=== PATIENT | male | born 1940 | race Caucasian/White ===

== ENCOUNTER 2020-04-28 19:07 | Inpatient (IN) | payer MEDICARE, MEDICAID, SELFPAY ==
[2020-04-28] VITALS (7 sets, daily range): BP systolic 62–113; BP diastolic 48–70; PULSE 99–109; RESP 18–26; TEMP 37.1–39.3; O2SAT 95–99; BMI 21.7
--- NOTE | 2020-04-28 19:11 | XRR_ITS ---
PROCEDURE INFORMATION: Exam: XR Chest, 1 View Exam date and time: 04/28/2020 7:49 PM Age: 79 years old Clinical indication: Fever TECHNIQUE: Imaging protocol: XR of the chest Views: Frontal portable upright view of the chest. COMPARISON: CR Chest 1 [place] [id number] 03/15/2018 5:14 AM FINDINGS: Lungs: Improved right basilar pulmonary subsegmental atelectasis medially, stable laterally. The pulmonary vasculature is normal. Pleural space: No pleural effusion. No pneumothorax. Heart/Mediastinum: The heart is normal in size and contour. Mediastinum: Stable. Vasculature: Mild tortuosity of the upper descending thoracic aorta. Bones/joints: Stable. XR/XR chest 1V portable [id number] IMPRESSION: Improved right basilar pulmonary subsegmental atelectasis.
--- NOTE | 2020-04-28 19:12 | ECG_ITS ---
[facility] Test Date: 2020-04-28 Pat Name: Geoffrey Villa Department: Room: Gender: Male Director Of Strategic Marketing: : 1940 Requested By: Sonu Gonzalez Order Number: [id number] Argelia MD: Jacob Rodríguez M.D. Measurements Intervals [place] Rate: 154 P: [place]: -1 QRS: 42 QRSD: 91 T: 62 QT: 269 QTc: 431 Interpretive Statements ATRIAL FIBRILLATION WITH RAPID VENTRICULAR RESPONSE MODERATE ST DEPRESSION [0.05+ mV ST DEPRESSION] CRITICAL TEST RESULT Compared to ECG 03/15/2018 05:12:27 ST (T wave) deviation now present Sinus rhythm no longer present Electronically Signed On 04-29-2020 0:23:22 CDT by Jacob Rodríguez M.D. [id number]
--- NOTE | 2020-04-28 19:15 | W.ED.FEVER ---
HPI - Fever General: Chief Complaint: Fever Stated Complaint: LOW O2 STATS Time Seen by Provider: 04/28/20 19:11 Source: EMS Mode of arrival: EMS Limitations: altered mental status History of Present Illness: HPI Narrative: 79-year-old male has a history of severe dementia that is here from prison. Patient there had a fever along with decreased O2 sats. Patient here is 93% on 4 L which she is on at all times. Patient's baseline is altered and he is nonverbal. No history is available from here. He is quite febrile and has a temperature 102.8. He has histories of pneumonia and urinary tract infections. elicited complaint: fever Review of Systems General: Reports: ROS unobtainable due to mental status Const: Reports: fever(s) Physical Exam Const: COMMON NORMALS: negative for patient oriented x3 EXAM LIMITATIONS: altered mental status GENERAL APPEARANCE: in distress, ill appearing and frail appearing HENMT: COMMON NORMALS: normocephalic and atraumatic HEAD & SCALP: normocephalic and atraumatic Eye: COMMON NORMALS: Equal, round and reactive pupils present and EOMs intact bilaterally PUPIL: Yes Equal, round and reactive pupils present Neck/C-Spine: COMMON NORMALS: full ROM and supple Chest: COMMONS NORMALS: normal inspection of the chest and normal palpation of entire chest wall Resp: COMMON NORMALS: normal respiratory effort, No retractions, No use of accessory muscles and clear to auscultation bilaterally AUSCULTATION: clear to auscultation bilaterally Cardio: COMMON NORMALS: regular rhythm and No murmurs present (Cardio) RATE: tachycardic RHYTHM: regular rhythm GI: COMMON NORMALS: Normal to inspection, nondistended, normoactive bowel sounds present, Soft to palpation, non-tender and no masses PALPATION: Yes Soft to palpation Extremity: COMMON NORMALS: normal to inspection and full ROM Neuro: COMMON NORMALS: negative for patient oriented x3 Psych: COMMON NORMALS: negative for mental status grossly normal Skin: COMMON NORMALS: no rashes or lesions noted and no wounds GENERAL SKIN EXAM: no rashes or lesions noted Course Vital Signs: Vital signs: Vital Signs Temperature 102.8 F H 04/28/20 19:11 Pulse Rate 105 H 04/28/20 21:14 Respiratory Rate 22 H 04/28/20 21:14 Blood Pressure 62/48 04/28/20 21:14 Pulse Oximetry 99 04/28/20 21:14 MDM - Fever MDM Narrative: Medical decision making narrative: 79-year-old presents here with fever along with hypotension. Patient has septic shock from cystitis. I spoke with family and they do not want any aggressive treatments. Patient is DNR and DNI. Will start patient on Levophed they do not want a central line at this time. Will admit the ICU and I spoke to hospitalist. Lab Data: Labs: Lab Results 04/28/20 04/28/20 04/28/20 Range/Units 19:26 19:26 19:26 WBC 3.4 L (4.0-10.0) 10^3/ uL RBC 4.53 (4.1-5.3) 10^6/u L Hgb 13.3 (11.7-16.6) g/dL Hct 42.4 (42.0-52.0) % MCV 93.6 (80-94) fL MCH 29.4 (28.0-34.0) pg MCHC 31.4 (30.0-36.0) g/dL RDW 13.2 (12.1-15.1) % Plt Count 198 (130-400) 10^3/c mm MPV 10.0 (7.4-10.4) fL Neut % (Auto) 88.6 % Lymph % (Auto) 8.1 % [place] % (Auto) 1.5 % Eos % (Auto) 0.3 % Baso % (Auto) 0.9 % Neut # (Auto) 3.05 (1.8-7.7) 10^3/u L Lymph # (Auto) 0.3 L (0.8-4.8) 10^3/u L [place] # (Auto) 0.1 L (0.2-0.9) 10^3/u L Eos # (Auto) 0.0 (0.0-0.8) 10^3/u L Baso # (Auto) 0.0 (0.0-0.1) 10^3/u L Nucleated RBC % (a uto) 0 % Nucleated RBCs # 0.0 /100WBC PT 14.70 H (10.5-13.3) SECO NDS INR 1.11 (0.8-1.2) Sodium 142 (136-145) mmol/L Potassium 4.0 (3.5-5.1) mmol/L Chloride 104 (98-107) mmol/L Carbon Dioxide 23 (22-29) mmol/L Anion Gap 19.0 (5-19) BUN 51 H (8-23) mg/dL Creatinine 2.3 H (0.7-1.2) mg/dL GFR Calculation Not Reportable Glucose 103 (65-115) mg/dL Calculated Osmolal ity 293 (285-295) mOsm/k g Lactate (0.5-2.2) mmol/L Calcium 9.3 (8.5-10.5) mg/dL Total Bilirubin 1.2 (0.15-1.2) mg/dL AST 75 H (0-40) U/L ALT 38 (0-41) U/L Alkaline Phosphata se 152 H (40-130) IU/L NT-Pro-B Natriuret Pep 1918 H (0-450) pg/mL Total Protein 6.6 (6.6-8.7) g/dL Albumin 3.3 L (3.5-5.2) g/dL Globulin 3.3 (1.3-4.6) g/dL Urine Color (Yellow) Urine Appearance (CLEAR) Urine pH (5-7) Ur Specific Gravit y (1.005-1.030) Urine Protein (Negative) Urine Glucose (UA) (Normal) Urine Ketones (Negative) Urine Blood (Negative) Urine Nitrate (Negative) Urine Bilirubin (NEGATIVE) Prot Sulfosalicyli c Acd (Negative) Urine Urobilinogen (Negative) mg/dL Ur Leukocyte Amy ase (Negative) Urine RBC (0-2) /hpf Urine WBC (0-5) /hpf Ur Squamous Epith Cells (0-5) Amorphous Sediment Urine Bacteria (NONE) 04/28/20 04/28/20 Range/Units 19:26 21:04 WBC (4.0-10.0) 10^3/ uL RBC (4.1-5.3) 10^6/u L Hgb (11.7-16.6) g/dL Hct (42.0-52.0) % MCV (80-94) fL MCH (28.0-34.0) pg MCHC (30.0-36.0) g/dL RDW (12.1-15.1) % Plt Count (130-400) 10^3/c mm MPV (7.4-10.4) fL Neut % (Auto) % Lymph % (Auto) % [place] % (Auto) % Eos % (Auto) % Baso % (Auto) % Neut # (Auto) (1.8-7.7) 10^3/u L Lymph # (Auto) (0.8-4.8) 10^3/u L [place] # (Auto) (0.2-0.9) 10^3/u L Eos # (Auto) (0.0-0.8) 10^3/u L Baso # (Auto) (0.0-0.1) 10^3/u L Nucleated RBC % (a uto) % Nucleated RBCs # /100WBC PT (10.5-13.3) SECO NDS INR (0.8-1.2) Sodium (136-145) mmol/L Potassium (3.5-5.1) mmol/L Chloride (98-107) mmol/L Carbon Dioxide (22-29) mmol/L Anion Gap (5-19) BUN (8-23) mg/dL Creatinine (0.7-1.2) mg/dL GFR Calculation Glucose (65-115) mg/dL Calculated Osmolal ity (285-295) mOsm/k g Lactate 0.2 L (0.5-2.2) mmol/L Calcium (8.5-10.5) mg/dL Total Bilirubin (0.15-1.2) mg/dL AST (0-40) U/L ALT (0-41) U/L Alkaline Phosphata se (40-130) IU/L NT-Pro-B Natriuret Pep (0-450) pg/mL Total Protein (6.6-8.7) g/dL Albumin (3.5-5.2) g/dL Globulin (1.3-4.6) g/dL Urine Color Yellow (Yellow) Urine Appearance Turbid (CLEAR) Urine pH 8 H (5-7) Ur Specific Gravit y 1.010 (1.005-1.030) Urine Protein 3+ H (Negative) Urine Glucose (UA) Norm (Normal) Urine Ketones 1+ H (Negative) Urine Blood 3+ H (Negative) Urine Nitrate Negative (Negative) Urine Bilirubin Neg (NEGATIVE) Prot Sulfosalicyli c Acd Positive (Negative) Urine Urobilinogen Norm (Negative) mg/dL Ur Leukocyte Amy ase 2+ H (Negative) Urine RBC >100 H (0-2) /hpf Urine WBC Too numerous to c nt H (0-5) /hpf Ur Squamous Epith Cells 0-4 H (0-5) Amorphous Sediment 4+ Urine Bacteria 4+ H (NONE) EKG Data^: EKG 1: Attestation: I personally reviewed and interpreted this EKG as follows: EKG interpretation date: 04/28/20 EKG interpretation time: 19:39 Interpretation: afib with rvr hr [address] or t wave abnormalities qrs 91 qtc 356 Critical Care Time Critical Care Time: Critical Care Time: Yes Total Critical Care Time: 35 Attestation: This case had a high probability of a clinically significant, sudden, or life threatening deterioration of this patient's condition which required my full and direct attention, intervention and personal management. Discharge Plan Discharge Patient Disposition: Admitted As Inpatient Clinical Impression: Septic shock Acute cystitis Qualifiers: Hematuria presence: without hematuria Qualified Code(s): N30.00 - Acute cystitis without hematuria Condition: Stable Referrals: Mathieu Overton DO [Primary Care Provider] - Coding Level of Care Code ED Lithographic Proofer Apprentice for Chg Fwd Exam Comprehensive
[2020-04-28 20:07] LABS: Basophils % 0.9 %; Eosinophils % 0.3 %; Hematocrit 42.4 % (42.0-52.0); Hemoglobin 13.3 g/dL (11.7-16.6); Lymphocytes # 0.3 10^3/uL (0.8-4.8); Lymphocytes % 8.1 %; Mean Corpuscular HGB Conc 31.4 g/dL (30.0-36.0); Mean Corpuscular Hemoglobin 29.4 pg (28.0-34.0); Mean Corpuscular Volume 93.6 fL (80-94); Monocytes # 0.1 10^3/uL (0.2-0.9); Monocytes % 1.5 %; Neutrophils # 3.05 10^3/uL (1.8-7.7); Neutrophils % 88.6 %; Nucleated Red Blood Cells % 0 %; Platelet Count 198 10^3/cmm (130-400); Red Blood Count 4.53 10^6/uL (4.1-5.3); Red Cell Distribution Width 13.2 % (12.1-15.1); White Blood Count 3.4 10^3/uL (4.0-10.0)
[2020-04-28 20:09] LABS: INR 1.11 (0.8-1.2)
[2020-04-28 20:13] LABS: Lactate (Lactic Acid level) 0.2 mmol/L (0.5-2.2)
[2020-04-28 20:59] LABS: Alanine Aminotransferase 38 U/L (0-41); Albumin Level 3.3 g/dL (3.5-5.2); Alkaline Phosphatase 152 IU/L (40-130); Aspartate Amino Transferase 75 U/L (0-40); Blood Urea Nitrogen 51 mg/dL (8-23); Calcium 9.3 mg/dL (8.5-10.5); Carbon Dioxide 23 mmol/L (22-29); Chloride 104 mmol/L (98-107); Globulin 3.3 g/dL (1.3-4.6); Glucose 103 mg/dL (65-115); NT Pro B Type Natriuretic Pept 1918 pg/mL (0-450); Osmolality Calculated 293 mOsm/kg (285-295); Sodium 142 mmol/L (136-145); Total Bilirubin 1.2 mg/dL (0.15-1.2); Total Protein 6.6 g/dL (6.6-8.7)
[2020-04-28 21:02] LABS: Slide Review Slide Review Perform
[2020-04-28] MEDS: acetaminophen 650 mg Supp PR (21:19)
[2020-04-28] MEDS: sodium chloride 0.9% 1,000 ML 999 ML IV (21:19)
[2020-04-28] MEDS: sodium chloride 0.9% 500 ML 999 ML IV (21:30)
--- NOTE | 2020-04-28 21:41 | PC.NURSE ---
hypotension verified by manual bp on L side. Dr notified. vo for second line
[2020-04-28 21:44] LABS: Urine Appearance Turbid (CLEAR); Urine Color Yellow (Yellow); pH Urine 8 (5-7)
[2020-04-28 21:45] LABS: Add Urine Microscopic? YES; Bilirubin Urine Neg (NEGATIVE); Blood Urine 3+ (Negative); Glucose Urine UA Norm (Normal); Ketones Urine 1+ (Negative); Leukocyte Esterase Urine 2+ (Negative); Nitrate Urine Negative (Negative); Protein Urine 3+ (Negative); Sulfosalicylic Acid Urine Positive (Negative); Urobilinogen Urine Norm (Negative)
[2020-04-28 21:56] LABS: RBC Urine >100 /hpf (0-2); Squamous Epithelial Cell Urine 0-4 (0-5); WBC Urine TOO NUMEROUS TO CNT /hpf (0-5)
[2020-04-28 21:57] LABS: Add Urine Culture? No; Amorphous Sediment Urine 4+; Bacteria Urine 4+
[2020-04-28] MEDS: vancomycin 1,000 MG in sodium chloride 0.9% 250 ML 250 MG IV (22:02)
--- NOTE | 2020-04-28 22:49 | CTR_ITS ---
PROCEDURE INFORMATION: Exam: CT Abdomen And Pelvis Without Contrast Exam date and time: 04/28/2020 11:07 PM Age: 79 years old Clinical indication: Condition or disease; Other: UTI, sepsis; Additional info: UTI sepsis TECHNIQUE: Imaging protocol: Computed tomography of the abdomen and pelvis without contrast. Radiation optimization: All CT scans at this facility use at least one of these dose optimization techniques: automated exposure control; mA and/or kV adjustment per patient size (includes targeted exams where dose is matched to clinical indication); or iterative reconstruction. COMPARISON: CT abdomen pelvis w con* [id number] 05/01/2018 2:40 PM RADIATION DOSE METRICS: Total DLP (mGy-cm): 1068.14 FINDINGS: Lungs: Centrilobular emphysema in the lung bases. Liver: Normal. No mass. Gallbladder and bile ducts: The gallbladder is surgically absent. Pancreas: Normal. No ductal dilation. Spleen: Normal. No splenomegaly. Adrenals: Normal. No mass. Kidneys and ureters: Moderately severe right obstructive uropathy is due to a 9 x 6 x 9 mm calculus in the midportion of the ureter. There are multiple additional calculi within the urinary bladder measuring up to 17 mm. The stones are new since 2018. Multiple additional nonobstructing stones in both kidneys, larger and more numerous on the right. Several bilateral renal cortical cysts measure up to 4 cm on the left. There is a chronic fatty and soft tissue mass arising from the right upper renal pole and measuring 3.4 x 2.8 cm. 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 Stomach and bowel: The rectum is distended with stool up to 6.6 cm. Appendix: No evidence of appendicitis. Intraperitoneal space: Unremarkable. No free air. No significant fluid collection. Vasculature: A nonruptured infrarenal abdominal aortic aneurysm measures up to 3.8 cm. There is an additional aneurysm of the proximal right common iliac artery measuring 3.7 cm. Ectasias of the left common femoral artery. Lymph nodes: Unremarkable. No enlarged lymph nodes. Bladder: The urinary bladder is decompressed by a Salgado catheter. Reproductive: Prostate contains numerous calcifications. Bones/joints: Chronic right hip internal fixation. Soft tissues: Small left inguinal hernia consist of fatty tissue only. CT/CT abdomen pelvis wo con [id number] IMPRESSION: 1. Right obstructive uropathy due to a 9 mm mid ureteral calculus. 2. Multiple bilateral intrarenal stones. Also multiple stones in the urinary bladder. 3. Nonruptured infrarenal aortic aneurysm, 3.8 cm. 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 Chronic right upper renal pole angiomyolipoma. 5. Other chronic and incidental findings as described. Radiation Dose CTDIVOL = (mGy): DLP = 1068.14 (mGy-cm)
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
[2020-04-28] MEDS: aztreonam 2,000 MG in sodium chloride 0.9% (plus) 100 ML 200 MG IV (23:52)
[2020-04-28] MEDS: dextrose 5%-sod chloride 0.45% 1,000 ML 100 ML IV (23:52)
[2020-04-29] VITALS (143 sets, daily range): BP systolic 67–185; BP diastolic 41–95; PULSE 75–163; RESP 18–31; TEMP 36.8–38.7; O2SAT 87–98
--- NOTE | 2020-04-29 01:05 | PC.PHAR ---
Pharmacokinetic dosing service Date: 04/29/20 Time: 99 Objective: Patient: Geoffrey Villa Floor: ICU-7 Age: 79 yo Serum creatinine: 2.3 mg/dL Height: 72.0 Inches Weight (kg): 72.575 Diagnosis: Relevant medical/social history: Cultures and sensitivities: Other labs: Assessment: IBW (kg): 77.60 Dosing wt(kg): 72.575 Estimated Creatinine clearance (ml/min): 25.9 CRCL method: Cockcroft and Gault using ibw(default). Drug selected: Vancomycin Loading dose (mg): 0 Vd (liters): 65.3 (factor used: 0.9 L/kg) [place]ou (hr-1): 0.026 Half life (hrs): 26.66 Recommended dose: 1000 mg Interval: 24 hrs Infusion time (hrs): 1.5 Predicted peak (mcg/mL): 32.4 Predicted trough (mcg/mL): 18.05 Total body weight is being used for vancomycin dosing. Renal function is stable [ ] /unstable [ ] Recommendations: Give Vancomycin 1000 mg q 24 hrs with an expected Cpeak of 32.4 mcg/ml and an expected Ctrough of 18.05 mcg/ml Renal dosing of other antibiotics (review renal dosing of other medications and list guidelines here): Thank you for the consult, will continue to follow. Signature: Nicole Archibald [facility]
[2020-04-29 04:07] LABS: Basophils # 0.1 10^3/uL (0.0-0.1); Basophils % 0.5 %; Hematocrit 37.6 % (42.0-52.0); Hemoglobin 11.2 g/dL (11.7-16.6); Lymphocytes # 0.6 10^3/uL (0.8-4.8); Lymphocytes % 2.2 %; Mean Corpuscular HGB Conc 29.8 g/dL (30.0-36.0); Mean Corpuscular Hemoglobin 29.6 pg (28.0-34.0); Mean Corpuscular Volume 99.5 fL (80-94); Mean Platelet Volume 10.3 fL (7.4-10.4); Monocytes # 1.1 10^3/uL (0.2-0.9); Neutrophils # 24.02 10^3/uL (1.8-7.7); Neutrophils % 92.2 %; Nucleated Red Blood Cells % 0 %; Platelet Count 198 10^3/cmm (130-400); Red Blood Count 3.78 10^6/uL (4.1-5.3); Red Cell Distribution Width 13.4 % (12.1-15.1)
[2020-04-29 04:21] LABS: Anion Gap 15.2 (5-19); Blood Urea Nitrogen 51 mg/dL (8-23); Calcium 7.6 mg/dL (8.5-10.5); Carbon Dioxide 19 mmol/L (22-29); Chloride 109 mmol/L (98-107); Glucose 159 mg/dL (65-115); Osmolality Calculated 292 mOsm/kg (285-295); Potassium 3.2 mmol/L (3.5-5.1); Sodium 140 mmol/L (136-145)
[2020-04-29 05:12] LABS: Slide Review Slide Review Perform
[2020-04-29] MEDS: ciprofloxacin 400 MG/200 ML PREMIX 200 MG IV (08:15)
[2020-04-29] MEDS: lactated ringers 1,000 ML 150 ML IV ×2 (08:16→17:13)
[2020-04-29] MEDS: pantoprazole DR 40 mg Tablet 20 MG PO (08:20)
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
[2020-04-29] MEDS: aspirin 81 mg EC Tablet PO (08:47)
[2020-04-29] MEDS: potassium chloride premix 40 MEQ/100 ML PREMIX 25 MEQ IV (09:36)
[2020-04-29] MEDS: aztreonam 1,000 MG in sodium chloride 0.9% (plus) 50 ML 100 MG IV ×2 (09:39→22:27)
[2020-04-29 09:46] LABS: Creatine Phosphokinase 42 U/L (39-308); Magnesium 1.6 mg/dL (1.7-2.3); Phosphorus 3.4 mg/dL (2.5-4.5)
[2020-04-29 09:47] LABS: Troponin T (5th) Once 47 ng/L (0-15)
--- NOTE | 2020-04-29 10:15 | PC.NURSE ---
Addendum entered by Kayla Avila RN 04/29/20 14:54: extavastion Original Note: Left arm Levophed infusing at 5mcg/hr, infiltrated. Pt has about a 4 inch by 1.5 inch pink hardened area on arm, following vein with catheter. Dr Jackson notified. Orders to follow pharmacy recommendations. Verna Becerra notified, to withdraw as much back out of catheter as can be, discontinued catheter, warm dry compress and elevated, Then terbutaline injection.
[2020-04-29] MEDS: terbutaline 1 mg/mL INJ 0.25 MG SUBCUT (10:30)
--- NOTE | 2020-04-29 10:40 | PC.NURSE ---
REmoved left forearm catheter after attempting to draw back any infused levophed and/or potassium. Maybe 0.25 ml drawn. Warm, dry compress applied. Arm elevated upon 2 pillows. Maiocl Finn brought terbutaline, we both looked at site , which is softer now. Decision to only injected 3 ml subq made, and done. Will continue to monitor.
[2020-04-29] MEDS: terbutaline 1 mg/mL INJ XX (10:46)
--- NOTE | 2020-04-29 14:11 | PC.NURSE ---
Third unit of PRBCs completed. Pt tolerated well.
[2020-04-29] MEDS: ALPRAZolam 0.25 mg Tablet PO (15:52)
[2020-04-29] MEDS: sodium chloride 0.9% 1,000 ML 750 ML IV (18:08)
--- NOTE | 2020-04-29 19:26 | PC.NURSE ---
Fever Pt tachycardic rate 140's-160's , sinus tach. Temp checked and 101.[address] Gomez for tylenol orders. Orders received for tylenol 650mg po q4 prn if can take oral, AR if unable to take oral.
--- NOTE | 2020-04-29 19:41 | PC.NURSE ---
Shift summary: Pt yells out rarely. He askes for Pepsis, he has been NPO today. Levophed extavastion his left forearm, the area is now soft and very bruised in appearance. He denies pain at the site. Levophed stopped by 1400. Pt's VSS then at 1700 his heart rate climbed to 140's, B/P dropped briefly, then heart rate came back down. at 1800 heart rate WNL but SBP 69, Dr Jackson notified, IV fluid bolus started. Pressures improving but pt is febrile this evening. Report given to YULIYA Angeles then his heart rate jumped back to 140. Bridgette, notified Dr Gomez of that and even higher temp. Orders received.
[2020-04-29] MEDS: acetaminophen 325 mg Tablet 650 MG PO (19:45)
--- NOTE | 2020-04-29 19:51 | PC.NURSE ---
Tachycardia/hypotension 1000ml bolus from dayshift completed. Levophed had to be resumed for bp 63/43. HR 160's sinus . Dr. Gomez notified at this time of sustained tachycardia. Orders received to switch levophed drip to neosynephrine due to tachycardia and another admin of 500ml NS bolus.
[2020-04-29] MEDS: sodium chloride 0.9% 500 ML 999 ML IV (20:00)
[2020-04-29] MEDS: phenylephrine inj 25 MG in sodium chloride 0.9% 250 ML 24.2 MG IV (20:05)
--- NOTE | 2020-04-29 20:30 | PC.NURSE ---
Family Updated On patient decline of condition and AND status. Approved for visitor (sister) Rosio Little to come visit.
[2020-04-29] MEDS: vancomycin 1,000 MG in sodium chloride 0.9% 250 ML 250 MG IV (23:00)
[2020-04-30] VITALS (66 sets, daily range): BP systolic 75–151; BP diastolic 52–94; PULSE 68–137; RESP 14–24; TEMP 36.5–37.8; O2SAT 90–99
[2020-04-30] MEDS: acetaminophen 650 mg Supp PR (00:12)
--- NOTE | 2020-04-30 00:20 | PC.NURSE ---
Physician Notification Dr. Gomez notified of continued persistent tachycardia for past several hrs. Sinus tach at rate 135. Afebrile at this time. BP 101/81 with neosynephrine at 100mcg. Orders received for additional 1000ml bolus.
[2020-04-30] MEDS: sodium chloride 0.9% 1,000 ML 999 ML IV (00:26)
[2020-04-30] MEDS: phenylephrine inj 25 MG in sodium chloride 0.9% 250 ML 60.6 MG IV (01:05)
[2020-04-30] MEDS: lactated ringers 1,000 ML 150 ML IV ×3 (01:46→22:16)
[2020-04-30] MEDS: ciprofloxacin 400 MG/200 ML PREMIX 200 MG IV (01:47)
[2020-04-30 04:29] LABS: Basophils # 0.2 10^3/uL (0.0-0.1); Basophils % 0.5 %; Eosinophils # 0.4 10^3/uL (0.0-0.8); Eosinophils % 1.2 %; Hematocrit 37.4 % (42.0-52.0); Lymphocytes # 0.9 10^3/uL (0.8-4.8); Lymphocytes % 2.7 %; Mean Corpuscular HGB Conc 29.4 g/dL (30.0-36.0); Mean Corpuscular Hemoglobin 29.1 pg (28.0-34.0); Mean Corpuscular Volume 98.9 fL (80-94); Mean Platelet Volume 10.6 fL (7.4-10.4); Monocytes # 1.3 10^3/uL (0.2-0.9); Monocytes % 3.7 %; Neutrophils # 30.84 10^3/uL (1.8-7.7); Neutrophils % 89.1 %; Nucleated Red Blood Cells % 0 %; Platelet Count 191 10^3/cmm (130-400); Red Blood Count 3.78 10^6/uL (4.1-5.3); Red Cell Distribution Width 13.9 % (12.1-15.1)
[2020-04-30 04:50] LABS: Alanine Aminotransferase 55 U/L (0-41); Albumin Level 2.1 g/dL (3.5-5.2); Alkaline Phosphatase 138 IU/L (40-130); Anion Gap 14.5 (5-19); Aspartate Amino Transferase 72 U/L (0-40); Blood Urea Nitrogen 55 mg/dL (8-23); Calcium 7.7 mg/dL (8.5-10.5); Carbon Dioxide 19 mmol/L (22-29); Chloride 112 mmol/L (98-107); Globulin 2.7 g/dL (1.3-4.6); Glucose 105 mg/dL (65-115); Magnesium 1.7 mg/dL (1.7-2.3); Osmolality Calculated 291 mOsm/kg (285-295); Potassium 4.5 mmol/L (3.5-5.1); Sodium 141 mmol/L (136-145); Total Bilirubin 0.5 mg/dL (0.15-1.2); Total Protein 4.8 g/dL (6.6-8.7)
[2020-04-30 05:35] LABS: Slide Review Slide Review Perform
[2020-04-30 05:36] LABS: White Blood Count 34.6 10^3/uL (4.0-10.0)
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
[2020-04-30] MEDS: cefTRIAXone 2,000 MG in sodium chloride 0.9% (plus) 50 ML 100 MG IV (08:47)
[2020-04-30] MEDS: pantoprazole DR 40 mg Tablet 20 MG PO (08:54)
[2020-04-30] MEDS: enoxaparin 30 mg/0.3 mL Syringe SUBCUT (08:54)
[2020-04-30] MEDS: aspirin 81 mg EC Tablet PO (08:54)
--- NOTE | 2020-04-30 13:58 | PC.RESP ---
Pulmonary Rehab information sent to patient.
[2020-04-30] MEDS: acetaminophen 325 mg Tablet 650 MG PO (19:24)
[2020-04-30 21:09] LABS: Vancomycin Trough 13.9 ug/mL (10-15)
[2020-04-30] MEDS: vancomycin 1,000 MG in sodium chloride 0.9% 250 ML 250 MG IV (22:16)
[2020-05-01] VITALS (26 sets, daily range): BP systolic 78–158; BP diastolic 52–88; PULSE 69–80; RESP 15–23; TEMP 37.4–37.7; O2SAT 85–96
[2020-05-01 04:26] LABS: Basophils % 0.2 %; Eosinophils # 0.2 10^3/uL (0.0-0.8); Eosinophils % 1.4 %; Hematocrit 32.1 % (42.0-52.0); Hemoglobin 9.8 g/dL (11.7-16.6); Lymphocytes # 1.1 10^3/uL (0.8-4.8); Mean Corpuscular HGB Conc 30.5 g/dL (30.0-36.0); Mean Corpuscular Hemoglobin 29.5 pg (28.0-34.0); Mean Corpuscular Volume 96.7 fL (80-94); Mean Platelet Volume 10.7 fL (7.4-10.4); Monocytes # 0.5 10^3/uL (0.2-0.9); Monocytes % 3.1 %; Neutrophils # 12.89 10^3/uL (1.8-7.7); Neutrophils % 86.4 %; Nucleated Red Blood Cells % 0 %; Platelet Count 156 10^3/cmm (130-400); Red Blood Count 3.32 10^6/uL (4.1-5.3); Red Cell Distribution Width 13.9 % (12.1-15.1); White Blood Count 14.9 10^3/uL (4.0-10.0)
[2020-05-01 05:06] LABS: Alanine Aminotransferase 30 U/L (0-41); Albumin Level 2.9 g/dL (3.5-5.2); Alkaline Phosphatase 101 IU/L (40-130); Anion Gap 11.6 (5-19); Aspartate Amino Transferase 28 U/L (0-40); Blood Urea Nitrogen 51 mg/dL (8-23); Calcium 7.8 mg/dL (8.5-10.5); Carbon Dioxide 22 mmol/L (22-29); Chloride 113 mmol/L (98-107); Globulin 2.3 g/dL (1.3-4.6); Glucose 83 mg/dL (65-115); Magnesium 1.7 mg/dL (1.7-2.3); Osmolality Calculated 293 mOsm/kg (285-295); Potassium 3.6 mmol/L (3.5-5.1); Sodium 143 mmol/L (136-145); Total Bilirubin 0.4 mg/dL (0.15-1.2); Total Protein 5.2 g/dL (6.6-8.7)
--- NOTE | 2020-05-01 06:38 | PC.NURSE ---
O2 sat Decreased to 85-86% on 4L NC. Repositioned patient to high fowlers, O2 titrated to 6L. Sats now 88% on 6L. Lungs diminished with expiratory wheezes. Encouraged cough and deep breath, pt unable to comprehend commands.
[2020-05-01] MEDS: acetaminophen 325 mg Tablet 650 MG PO (08:16)
--- NOTE | 2020-05-01 08:30 | PC.NURSE ---
Sister called for update. Requested pt not be administered any blood thinners (specifically mentioned Aspirin) because of fear they would interfere with possible surgery on Sunday. Stated she is also a pt of Dr Mace and knows his requirements regarding meds and surgery. Informed sister of dose and reasons why VTE prophylaxis prescribed, as well as no surgery scheduled at this time. Sister asked me to call physician for clarification. Dr Jackson notified per family's request. Orders to continue with Lovenox and Aspirin. Meds administered slightly late as a result.
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
[2020-05-01] MEDS: pantoprazole DR 40 mg Tablet 20 MG PO (10:04)
[2020-05-01] MEDS: aspirin 81 mg EC Tablet PO (10:04)
[2020-05-01] MEDS: enoxaparin 30 mg/0.3 mL Syringe SUBCUT (10:05)
[2020-05-01] MEDS: cefTRIAXone 2,000 MG in sodium chloride 0.9% (plus) 50 ML 100 MG IV (10:06)
--- NOTE | 2020-05-01 11:15 | PC.SOCIAL ---
Pg 2 IMM Explained to pt Pg 2 IMM. No questions voiced. Provided pt a copy. Signed, dated, & timed copy & placed in chart.
--- NOTE | 2020-05-01 11:40 | PC.CHAP ---
Pastoral Care Encounter/Spiritual Assessment Type of Contact [] Declined electrocardiograph repairer visit [] Patient/Family/Request visit [] Outpatient visit [] Follow-up visit [] Physician referral [] Code/Alert [X] Routine visit [] Staff referral [] Actively dying [] Patient sleeping [] Family support [] [] Out of room [] Palliative care [] [] Receiving care in room [] Pre-surgical visit [] Trauma [] Long length of stay [X] ICU visit [] Other: Relational/Emotional Strength [] Patient feels connected with others/family/visitors/staff [] Distress [] Loneliness/isolation [] Abandonment Spirituality of Patient [] Person of Stacey [] Attends Yarsani of their Stacey [] Believes in Prayer [] Reads Bible or Zoroastrian materials [] There are Spiritual issues to be addressed Bed Laborer Interventions [] Prayer [] Active listening [] Non-anxious presence [] Spiritual/emotional support [] Crisis/trauma care [] Spiritual counseling [] Bereavement support [] Provided bereavement packet [] Provided Bible/devotional materials [] Provided toy/stuffed animal, coloring book to patient or family member [] Provided Communion [] Anointing/[place] [] Salvation [] Completed spiritual assessment [] Other: Impact on Illness or Injury [] Angry [] Fearful [] Anxious [] Often cries [] Exhaustion [] Unable to work [] Unable to attend yazidism [] Unable to walk/stand [] Unable to read [] Unable to drive [] Unable to eat/drink [] Unable to sleep [] Unable to be with family [] Patient intubated [] Other: Summary: It was extremely difficult to understand the patient. In addition to poor articulation, he was confused. He declined my offer for prayer. Time spent with patient: <5mins
--- NOTE | 2020-05-01 12:00 | PC.NURSE ---
Pt's O2 saturation consistently 88-90% throughout night custodian and this shift. Dr Jackson aware at [address] Jackson now to notify pt consistently 88-89%. Will place orders shortly.
--- NOTE | 2020-05-01 15:03 | PC.NURSE ---
LR discontinued at 1230 per telephone order via Dr Jackson.
--- NOTE | 2020-05-01 15:55 | XRR_ITS ---
PROCEDURE INFORMATION: Exam: XR Chest, 1 View Exam date and time: 05/01/2020 3:56 PM Age: 79 years old Clinical indication: Shortness of breath TECHNIQUE: Imaging protocol: XR of the chest Views: 1 view. COMPARISON: CR XR chest 1V portable [id number] 04/28/2020 7:37 PM FINDINGS: Tubes, catheters and devices: Surgical clip in the right lower thorax. Lungs: Increased airspace opacities in both lung bases and right mid lung. Pleural space: Small bilateral pleural effusions. No pneumothorax. Heart/Mediastinum: Unremarkable. No cardiomegaly. Bones/joints: Old right rib fractures. XR/XR chest 1V portable [id number] IMPRESSION: Bibasilar pneumonia versus aspiration or pulmonary edema.
--- NOTE | 2020-05-01 15:58 | PC.NURSE ---
Addendum entered by Celina Williamson RN 05/01/20 16:20: Also notified of slight trending upward of BP. Original Note: O2 sats consistently 90-94% from 4624-7951. Since 1530, sats have decreased to 85-89%. Dr Jackson notified. Will place orders shortly.
[2020-05-01] MEDS: FUROsemide 10 mg/mL SDV 10mL 60 MG IVP (16:11)
[2020-05-01] MEDS: potassium chloride ER 10 mEq Tablet 40 MEQ PO (16:12)
--- NOTE | 2020-05-01 19:44 | PC.NURSE ---
Pt unable to swallow PO Potassium. Attempted multiple times in pudding over an hour. Dr Jackson notified. Ordered Elixer instead. If pt unable to take elixer, Dr Jackson authorized that night nurse may order KRider instead. josep Angeles RN, notified.
--- NOTE | 2020-05-01 21:01 | PC.NURSE ---
Potassium Elixer Unable to comprehend command to drink potassium elixer mixed wth some juice. Unable to suck on straw at this time after several attempts. Pursed lips together and started yelling at nurse. Verbal orders were received if unable to take oral to administer IV Krider instead.
[2020-05-01] MEDS: vancomycin 1,000 MG in sodium chloride 0.9% 250 ML 250 MG IV (21:17)
[2020-05-01] MEDS: potassium chloride premix 40 MEQ/100 ML PREMIX 25 MEQ IV (21:36)
[2020-05-01] MEDS: lidocaine 1% INJ 20 mL 5 ML IV (21:36)
--- NOTE | 2020-05-01 22:32 | PC.NURSE ---
Suspected aspiration Pt asking for drink, pt in high fowlers was given pepsi with straw. Multiple swallows noted by patient and proceeded to cough without being productive . Wet vocal cord sounds noted. O2 sat 94% on 6L. No changes in breathing pattern. Lung sounds diminished. Will continue to monitor, keep in high fowlers, and keep NPO until further orders from physician.
[2020-05-02] VITALS (19 sets, daily range): BP systolic 110–173; BP diastolic 64–104; PULSE 68–78; RESP 14–23; TEMP 36.6–38.6; O2SAT 90–98
[2020-05-02] MEDS: acetaminophen 650 mg Supp PR (01:16)
[2020-05-02] MEDS: potassium chloride premix 40 MEQ/100 ML PREMIX 25 MEQ IV (01:40)
[2020-05-02 04:49] LABS: Basophils % 0.3 %; Eosinophils # 0.3 10^3/uL (0.0-0.8); Eosinophils % 2.5 %; Hematocrit 39.1 % (42.0-52.0); Hemoglobin 12.2 g/dL (11.7-16.6); Lymphocytes # 1.2 10^3/uL (0.8-4.8); Lymphocytes % 10.8 %; Mean Corpuscular HGB Conc 31.2 g/dL (30.0-36.0); Mean Corpuscular Hemoglobin 29.5 pg (28.0-34.0); Mean Corpuscular Volume 94.7 fL (80-94); Mean Platelet Volume 10.5 fL (7.4-10.4); Monocytes # 0.5 10^3/uL (0.2-0.9); Monocytes % 4.5 %; Neutrophils # 9.31 10^3/uL (1.8-7.7); Neutrophils % 81.3 %; Nucleated Red Blood Cells % 0 %; Platelet Count 172 10^3/cmm (130-400); Red Blood Count 4.13 10^6/uL (4.1-5.3); Red Cell Distribution Width 13.3 % (12.1-15.1); White Blood Count 11.5 10^3/uL (4.0-10.0)
[2020-05-02] MEDS: cefTRIAXone 2,000 MG in sodium chloride 0.9% (plus) 50 ML 100 MG IV (07:25)
[2020-05-02 07:51] LABS: Alanine Aminotransferase 23 U/L (0-41); Alkaline Phosphatase 102 IU/L (40-130); Anion Gap 9.1 (5-19); Aspartate Amino Transferase 20 U/L (0-40); Blood Urea Nitrogen 35 mg/dL (8-23); Calcium 8.8 mg/dL (8.5-10.5); Carbon Dioxide 27 mmol/L (22-29); Chloride 111 mmol/L (98-107); Globulin 2.4 g/dL (1.3-4.6); Glucose 102 mg/dL (65-115); Magnesium 1.6 mg/dL (1.7-2.3); NT Pro B Type Natriuretic Pept 20407 pg/mL (0-450); Osmolality Calculated 294 mOsm/kg (285-295); Potassium 4.1 mmol/L (3.5-5.1); Sodium 143 mmol/L (136-145); Total Bilirubin 0.3 mg/dL (0.15-1.2); Total Protein 5.4 g/dL (6.6-8.7)
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
[2020-05-02] MEDS: enoxaparin 40 mg/0.4 mL Syringe SUBCUT (10:19)
--- NOTE | 2020-05-02 12:05 | PC.NURSE ---
daughter called and concerned about about not being able to eat has history of having esophageal stricture needing dilation to open dr boyce notifed after eval by speech to follow speech recomendation and feed only when very alert
--- NOTE | 2020-05-02 15:40 | PC.NURSE ---
report given and transfer to 2nd floor at this time
[2020-05-03] VITALS (10 sets, daily range): BP systolic 103–148; BP diastolic 63–86; PULSE 69–87; RESP 16–22; TEMP 36.5–38.4; O2SAT 83–96
[2020-05-03] MEDS: cefTRIAXone 2,000 MG in sodium chloride 0.9% (plus) 50 ML 100 MG IV (07:45)
--- NOTE | 2020-05-03 09:15 | DCPLANNER ---
Pg 2 of IM updated and left at bedside, pt is sleeping. We will explain it to his sister when she arrives this afternoon.
[2020-05-03] MEDS: aspirin 81 mg EC Tablet PO (10:01)
[2020-05-03] MEDS: pantoprazole DR 40 mg Tablet 20 MG PO (10:01)
[2020-05-03] MEDS: acetaminophen 325 mg Tablet 650 MG PO (10:02)
--- NOTE | 2020-05-03 11:51 | PC.NURSE ---
Swallowing and eating noted to be improved. Patient alert and oriented to self. Patient fed by myself and tolerated well. Drank 2 orange juices (thin liquid), no straw, with no signs of choking or clearing of throat. Patient ate appox. 35% of meal and voiced he did not want anymore. Will continue to closely monitor. Jessika with Speech Therapy notified as she rounded on patient. GERARDO, ANIKA
[2020-05-03 14:59] LABS: Basophils % 0.3 %; Eosinophils # 0.2 10^3/uL (0.0-0.8); Eosinophils % 1.4 %; Hematocrit 38.7 % (42.0-52.0); Lymphocytes # 1.8 10^3/uL (0.8-4.8); Lymphocytes % 12.6 %; Mean Corpuscular Hemoglobin 28.6 pg (28.0-34.0); Mean Corpuscular Volume 92.1 fL (80-94); Mean Platelet Volume 10.2 fL (7.4-10.4); Monocytes # 0.8 10^3/uL (0.2-0.9); Monocytes % 5.6 %; Neutrophils # 11.23 10^3/uL (1.8-7.7); Neutrophils % 78.9 %; Nucleated Red Blood Cells % 0 %; Platelet Count 195 10^3/cmm (130-400); Red Cell Distribution Width 13.1 % (12.1-15.1); White Blood Count 14.2 10^3/uL (4.0-10.0)
--- NOTE | 2020-05-03 15:13 | P.PN_ITS ---
Subjective Subjective: Interval history: No acute events overnight. Patient was seen lying comfortably in bed. Awake alert. Having meaningful conversation but slow and feeling tired. Denies of having any pain. On examination patient is a 5 L saturating 93%. T-max last 24 hours 101.1 Fahrenheit earlier this morning at around 8 AM. Vitals/I&O/Wt Last Vital Signs Temp 98.1 F 05/03/20 11:37 Pulse 80 05/03/20 11:37 Resp 16 05/03/20 11:37 BP 104/63 05/03/20 11:37 Pulse Ox 93 05/03/20 11:37 05/03/20 05/03/20 05/03/20 06:59 14:59 22:59 Intake Total 770 / 770 Output Total 600 / 1400 Balance -600 / -995.106 770 / 770 Physical Exam Const: COMMON NORMALS: no acute distress GENERAL APPEARANCE: lethargic (Slightly more alert.) ORIENTATION/CONSCIOUSNESS: Yes lethargic (Slightly more alert.) Resp: COMMON NORMALS: normal respiratory effort and clear to auscultation bilaterally AUSCULTATION: clear to auscultation bilaterally Cardio: COMMON NORMALS: regular rate, regular rhythm and S2 normal heart sound present RATE: regular rate RHYTHM: regular rhythm HEART SOUNDS: S2 normal heart sound present OTHER: No lower extremity edema GI: COMMON NORMALS: Normal to inspection, nondistended, normoactive bowel sounds present, Soft to palpation and non-tender (Appears nontender.) PALPATION: Yes Soft to palpation Neuro: SENSORIUM/ORIENTATION: Yes lethargic (Slightly more alert.) OTHER: Neurological exam is limited. Urinary Catheter Management^: Salgado: Cath Placed During This Visit: yes Reason for Continuing Indwelling Catheter: Acute Urinary Retention or Obstruction Urinary Catheter Date of Insertion: 04/28/20 Urinary Catheter Time of Insertion: 23:05 Data : 05/03/20 14:49 05/02/20 06:58 Micro: Microbiology 05/02/20 03:54 Blood Culture - Preliminary Blood NEGATIVE TO DATE 05/02/20 04:15 Blood Culture - Preliminary Blood NEGATIVE TO DATE 04/28/20 19:27 Blood Culture - Preliminary Blood Aerococcus urinae A&P Assessment and plan (1) Bacteremia: Patient is growing alphahemolytic strep and similar Aerococcus urinae in the urine. Status: Acute (2) Aspiration pneumonia: Pneumonia/pneumonitis. Status: Acute (3) Septic shock: Status: Acute (4) Acute cystitis: Status: Acute Qualifiers: Hematuria presence: without hematuria Qualified Code(s): N30.00 - Acute cystitis without hematuria (5) WILLARD (acute kidney injury): Status: Acute (6) Lymphopenia: Status: Acute (7) Muscle function loss: Status: Acute (8) Oropharyngeal dysphagia: Status: Acute (9) Obstructive uropathy: Status: Acute Additional A&P Information Septic shock: Resolving secondary to Aerococcus UTI and aspiration pneumonia. Blood cultures from admission also positive for Aerococcus. Repeat blood cultures stat. Patient continues to spike fever and is on 5 L oxygen supplementation at present as well. Most likely because of poor source control. Discussed with Dr. Mace regarding obstructive uropathy. Patient most likely requires lithotripsy and stent placement. Patient is on ceftriaxone at present. Best would be to start patient on Zosyn but not able to because of penicillin allergy. Will start patient on Flagyl. Continue to follow blood cultures. Have requested lab for Aerococcus susceptibilities. Keep mean arterial pressures over 65 mmHg. Physical therapy with chest vest. DuoNeb's and budesonide twice daily. Ox supplementation keeping saturation over 90% Check sputum culture, MRSA swab. Have requested secondary to UTI Being followed with speech and swallow therapy as well. Will advance diet accordingly. For now we will keep patient n.p.o. for possible procedure. Septic encephalopathy: Improving. Acute kidney injury: Baseline creat normal. Creatinine trending down now. Creatinine yesterday 1.4. No labs done today. Start patient on gentle hydration with normal saline at 50 cc/h. Medically consistent done for nephrotoxic drugs. Severe protein energy malnutrition. Severe muscle wasting. DNR/DNI DVT prophylaxis: Lovenox Mechanical soft diet as per the speech and swallow evaluation. N.p.o. for now. Dispo: When stable patient will return back to [place] care. Attestations Medical Necessity Statement*: Sepsis, bacteremia, UTI, obstructive uropathy, aspiration pneumonia Time Spent in Patient Care: Greater than 35 minutes (>than 50% of time spent in counselling and/or direct pt care on unit) . 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
[2020-05-03] MEDS: sodium chloride 0.9% 1,000 ML 50 ML IV (15:33)
[2020-05-03] MEDS: metroNIDAZOLE IV 500 MG/100 ML PREMIX 100 MG IV ×2 (15:36→23:42)
[2020-05-03 15:49] LABS: Alanine Aminotransferase 19 U/L (0-41); Albumin Level 3.2 g/dL (3.5-5.2); Alkaline Phosphatase 92 IU/L (40-130); Anion Gap 12.7 (5-19); Aspartate Amino Transferase 19 U/L (0-40); Blood Urea Nitrogen 26 mg/dL (8-23); Calcium 7.9 mg/dL (8.5-10.5); Carbon Dioxide 29 mmol/L (22-29); Chloride 108 mmol/L (98-107); Globulin 2.4 g/dL (1.3-4.6); Glucose 118 mg/dL (65-115); Osmolality Calculated 300 mOsm/kg (285-295); Potassium 3.7 mmol/L (3.5-5.1); Sodium 146 mmol/L (136-145); Total Bilirubin 0.3 mg/dL (0.15-1.2); Total Protein 5.6 g/dL (6.6-8.7)
[2020-05-03] MEDS: dextrose 5%-sod chloride 0.9% 1,000 ML 50 ML IV (17:30)
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
[2020-05-03] MEDS: budesonide 0.5 mg/2 mL Neb INHALATION (21:55)
[2020-05-03] MEDS: ipratropium-albuterol 3 mL Neb INHALATION (21:56)
[2020-05-04] VITALS (19 sets, daily range): BP systolic 108–150; BP diastolic 68–81; PULSE 63–80; RESP 16–22; TEMP 36.4–37.3; O2SAT 93–98
--- NOTE | 2020-05-04 | SCC_ITS ---
Procedure Done: 1. Cystoscopy with right ureteral stent placed 2. Right retrograde pyelogram 41.0 seconds of fluoroscopic guidance, for a cumulative dose of 7.43 mGy, was provided to Dr. Mace by the radiology department. C-arm images of the abdomen were saved for the patient's permanent record. [facility]
[2020-05-04] MEDS: ipratropium-albuterol 3 mL Neb INHALATION ×4 (03:43→20:30)
[2020-05-04 05:23] LABS: Basophils # 0.1 10^3/uL (0.0-0.1); Basophils % 0.4 %; Eosinophils # 0.3 10^3/uL (0.0-0.8); Eosinophils % 2.8 %; Hematocrit 37.8 % (42.0-52.0); Hemoglobin 11.9 g/dL (11.7-16.6); Lymphocytes # 1.6 10^3/uL (0.8-4.8); Lymphocytes % 12.7 %; Mean Corpuscular HGB Conc 31.5 g/dL (30.0-36.0); Mean Corpuscular Hemoglobin 30.1 pg (28.0-34.0); Mean Corpuscular Volume 95.5 fL (80-94); Mean Platelet Volume 10.4 fL (7.4-10.4); Monocytes # 0.8 10^3/uL (0.2-0.9); Monocytes % 6.6 %; Neutrophils # 9.26 10^3/uL (1.8-7.7); Neutrophils % 75.7 %; Nucleated Red Blood Cells % 0 %; Platelet Count 210 10^3/cmm (130-400); Red Blood Count 3.96 10^6/uL (4.1-5.3); Red Cell Distribution Width 13.1 % (12.1-15.1); White Blood Count 12.2 10^3/uL (4.0-10.0)
[2020-05-04 05:53] LABS: Albumin Level 2.8 g/dL (3.5-5.2); Chloride 109 mmol/L (98-107); Potassium 3.6 mmol/L (3.5-5.1); Sodium 144 mmol/L (136-145)
[2020-05-04 06:18] LABS: Alanine Aminotransferase 17 U/L (0-41); Alkaline Phosphatase 86 IU/L (40-130); Anion Gap 9.6 (5-19); Aspartate Amino Transferase 22 U/L (0-40); Blood Urea Nitrogen 25 mg/dL (8-23); Carbon Dioxide 29 mmol/L (22-29); Globulin 2.6 g/dL (1.3-4.6); Glucose 105 mg/dL (65-115); Osmolality Calculated 295 mOsm/kg (285-295); Total Bilirubin 0.3 mg/dL (0.15-1.2); Total Protein 5.4 g/dL (6.6-8.7)
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
[2020-05-04] MEDS: sodium chloride 0.9% 1,000 ML 30 ML IV (06:42)
--- NOTE | 2020-05-04 06:49 | SC_ITS ---
WS: [id number] C-ARM RADIOGRAPHS ABDOMEN; 3 IMAGES HISTORY: surgery COMPARISON: None available. Intraoperative imaging during RIGHT renal evaluation for stones. SC/C-arm FL for Urology IMPRESSION: Intraoperative imaging for urology.
--- NOTE | 2020-05-04 06:52 | P.PN_ITS ---
Subjective Subjective: Interval history: Urology follow-up: Hemodynamically stable overnight with no temperature spike. White count is 12 this morning. About the same mentally. We will proceed with cystoscopy right ureteral stent placement and if necessary ureteroscopy today. His prognosis overall is poor but he has a better chance of recovering from the infection and safely dealing with the stone if he is stented. Vitals/I&O/Wt Last Vital Signs Temp 99.2 F 05/04/20 06:16 Pulse 77 05/04/20 06:16 Resp 16 05/04/20 06:16 BP 140/75 05/04/20 06:16 Pulse Ox 98 05/04/20 06:16 05/03/20 05/03/20 05/04/20 14:59 22:59 06:59 Intake Total 770 / 770 340 / 1110 Output Total 700 / 700 375 / 1075 Balance 770 / 770 -360 / 410 -375 / 35 Physical Exam Const: COMMON NORMALS: no acute distress and alert GENERAL APPEARANCE: well developed HENMT: COMMON NORMALS: normocephalic and atraumatic HEAD & SCALP: normocephalic and atraumatic Eye: COMMON NORMALS: conjunctivae normal and no scleral icterus CONJUNCTIVA: Yes conjunctivae normal Resp: EFFORT & INSPECTION: No labored and No Actively coughing Neuro: SENSORIUM/ORIENTATION: Yes alert Psych: ATTITUDE: Yes calm Skin: COMMON NORMALS: no rashes or lesions noted GENERAL SKIN EXAM: no rashes or lesions noted Urinary Catheter Management^: Salgado: Cath Placed During This Visit: yes Reason for Continuing Indwelling Catheter: Acute Urinary Retention or Obstruction Urinary Catheter Date of Insertion: 04/28/20 Urinary Catheter Time of Insertion: 23:05 Data : 05/04/20 04:58 05/04/20 04:58 Micro: Microbiology 05/02/20 03:54 Blood Culture - Preliminary Blood NEGATIVE TO DATE 05/02/20 04:15 Blood Culture - Preliminary Blood NEGATIVE TO DATE A&P Assessment and plan (1) Obstructive pyelonephritis: To the operating room this morning for cystoscopy right ureteral stent placement Status: Acute (2) Bladder stone: Multiple bladder stones. We will flushes many of the stones out as possible at time of stent placement. If larger stones requiring cystolitholapaxy we will postpone that until time for definitive treatment of the right ureteral stone Status: Acute (3) Right ureteral calculus: Status: Acute Attestations Medical Necessity Statement*: Critically ill. 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
--- NOTE | 2020-05-04 07:01 | P.OP_ITS ---
Operative Report Date of procedure: May 04, 2020 Pre-op Diagnosis: Right obstructive pyelonephritis, bladder stones Post-op diagnosis: same Procedure Done: 1. Cystoscopy with right ureteral stent placed 2. Right retrograde pyelogram Implants: Right ureteral stent 8 Palestinian by 30 cm Pathology: other (Bladder stones) Surgeon: Nakita Urine output: Not measured Complications: None Findings: Stent placed without difficulty. Condition: stable Disposition: PACU Brief History: Geoffrey is a very debilitated 79-year-old white male with multiple medical problems including dementia, recurrent UTIs, history of poorly emptying bladder, complicated urolithiasis with multiple episodes of obstructive pyelonephritis. Recently admitted in septic shock and was found to have a large right mid ureteral struct stone. Surprisingly he improved clinically with antibiotics alone. His family declined transfer while I was out of town and upon consultation I recommended cystoscopy and stent placement. Procedure: After urgent evaluation examination and obtaining of informed consent he was taken to the operating suite on 05/04/2020 where general anesthesia was administered without difficulty. Prepped and draped in usual sterile fashion in dorsolithotomy position pain careful attention to avoiding pressure points after appropriate timeout was performed, SCDs confirmed to be functioning, preoperative therapeutic antibiotics confirmed, beta-karl protocol confirmed. 21 Palestinian cystoscope with 30 degree lens was introduced into the urethral meatus and advanced into the bladder under videoscopy. Multiple stones were located in the bladder. There were some tiny stones but more importantly a couple larger stones that would require laser lithotripsy or cystolitholapaxy manually. For that reason these were not addressed specifically and this will be postponed until definitive treatment of the ureteral stone is undertaken. Flexible guidewire was advanced up the right ureter some difficulty bypassing the stone. An open-ended ureteral catheter was then advanced to the level of the stone and this allowed passage of the wire beyond the stone with curling in the area of the renal pelvis. The open-ended ureteral catheter was then advanced into the area presumed to be the renal pelvis and approximately 1 cc to 2 cc of contrast was injected after draining some fluid in order to confirm appropriate position. There is no evidence of extravasation and the renal pelvis was confirmed. The open-ended ureteral catheter was removed after replacement of the guidewire and then an 8 Palestinian by 30 cm double-pigtail stent was advanced over the guidewire through the cystoscope into appropriate position as confirmed via fluoroscopy and cystoscopy. Bladder was drained with a 18 Palestinian Salgado catheter. It was difficult to place the catheter which might explain the previously located balloon in the prostatic fossa. For that reason a guidewire was then repassed through the scope curling into the bladder and an 18 Palestinian catheter was passed over the guidewire after converting it to a peoria tip catheter. The balloon was inflated and the catheter was confirmed to be working prior to removal of the wire. Tolerated procedure well without complications and was awakened in the operating room and returned to recovery in stable condition. PLANS: 1. Focus on infection treatment and then deal with the stone definitively after he recovers from that. His overall risk is very high and his prognosis is poor. These realities have been discussed at length with his sister who is actively involved in his decision-making and care.
[2020-05-04] MEDS: iohexol 300 mg/mL 50 mL Btl (OR ONLY) XX (07:24)
--- NOTE | 2020-05-04 07:38 | SUR.PHASEI ---
PT AWAKE TO VOICE GOOD RESP NOTED VSS PT WAS MAC SEDATION ONLY, VSS PT ON 4LNC PRE SURGURY, . REPORT CALLED AND PT TO FLOOR PER OR NURSE
[2020-05-04] MEDS: budesonide 0.5 mg/2 mL Neb INHALATION ×2 (08:06→20:31)
[2020-05-04] MEDS: sodium chloride 0.9% 1,000 ML 100 ML IV (10:01)
[2020-05-04] MEDS: enoxaparin 40 mg/0.4 mL Syringe SUBCUT (10:02)
[2020-05-04] MEDS: metroNIDAZOLE IV 500 MG/100 ML PREMIX 100 MG IV ×3 (10:02→23:38)
--- NOTE | 2020-05-04 12:25 | P.PN_ITS ---
Subjective Subjective: Interval history: No acute events overnight. Today morning patient underwent cystoscopy and stent placement with urologist. On examination he is lying comfortably in bed. Denies of any nausea, vomiting, headache. Patient's mentation has remained stable since yesterday. Vitals/I&O/Wt Last Vital Signs Temp 97.8 F 05/04/20 07:37 Pulse 79 05/04/20 11:45 Resp 18 05/04/20 11:45 BP 135/80 05/04/20 11:45 Pulse Ox 93 05/04/20 11:45 05/03/20 05/04/20 05/04/20 22:59 06:59 14:59 Intake Total 340 / 1110 100 / 1210 240 / 240 Output Total 700 / 700 375 / 1075 Balance -360 / 410 -275 / 135 240 / 240 Physical Exam Const: COMMON NORMALS: no acute distress GENERAL APPEARANCE: lethargic (Slightly more alert.) ORIENTATION/CONSCIOUSNESS: Yes lethargic (Slightly more alert.) Resp: COMMON NORMALS: normal respiratory effort and clear to auscultation bilaterally AUSCULTATION: clear to auscultation bilaterally Cardio: COMMON NORMALS: regular rate, regular rhythm and S2 normal heart sound present RATE: regular rate RHYTHM: regular rhythm HEART SOUNDS: S2 normal heart sound present OTHER: No lower extremity edema GI: COMMON NORMALS: Normal to inspection, nondistended, normoactive bowel sounds present, Soft to palpation and non-tender (Appears nontender.) PALPATION: Yes Soft to palpation Neuro: SENSORIUM/ORIENTATION: Yes lethargic (Slightly more alert.) OTHER: Neurological exam is limited. Urinary Catheter Management^: Salgado: Cath Placed During This Visit: yes, but has since been removed by the nurse Reason for Continuing Indwelling Catheter: Acute Urinary Retention or Obstruction Urinary Catheter Date of Insertion: 05/04/20 Urinary Catheter Time of Insertion: 07: Date Urinary Catheter Removed: 05/04/20 Time Urinary Catheter Discontinued: 07:05 Data : 05/04/20 04:58 05/04/20 04:58 Micro: Microbiology 05/03/20 15:30 MRSA Culture - Final Nose A&P Assessment and plan (1) Obstructive pyelonephritis: Status: Acute (2) Bacteremia: Status: Acute (3) Septic shock: Status: Acute (4) Acute cystitis: Status: Acute Qualifiers: Hematuria presence: without hematuria Qualified Code(s): N30.00 - Acute cystitis without hematuria (5) Aspiration pneumonia: Pneumonia/pneumonitis. Status: Acute (6) WILLARD (acute kidney injury): Status: Acute (7) Right ureteral calculus: Status: Acute (8) S/P ureteral stent placement: Status: Acute (9) Muscle function loss: Status: Acute (10) Lymphopenia: Status: Acute (11) Oropharyngeal dysphagia: Status: Acute Additional A&P Information Septic shock: Resolving secondary to Aerococcus obstructive pyelonephritis and aspiration pneumonia. Blood cultures from admission also positive for Aerococcus. Patient underwent cystoscopy and stent placement today. Repeat blood cultures preliminary have remained negative. We will continue ceftriaxone and Flagyl. Continue to follow blood cultures. Have requested micro lab for suscepti bilities to Aerococcus. I am informed can take up to 1 week. Keep mean arterial pressures over 65 mmHg. Physical therapy with chest vest. DuoNeb's and budesonide twice daily. Ox supplementation keeping saturation over 90% MRSA positive. Sputum culture still awaited. Being followed with speech and swallow therapy as well. Will advance diet accordingly. For now continue with soft mechanical diet with thin liquids. Septic encephalopathy: Improving. Acute kidney injury: Baseline creat normal. Creatinine normalized now.. Continue with D5 NS at 50 cc/h. Medically consistent done for nephrotoxic drugs. Severe protein energy malnutrition. Severe muscle wasting. DNR/DNI DVT prophylaxis: Lovenox Mechanical soft diet as per the speech and swallow evaluation. N.p.o. for now. Dispo: When stable patient will return back to [facility] care. Attestations Medical Necessity Statement*: Septic shock, obstructive pyelonephritis, bacteremia Time Spent in Patient Care: Greater than 35 minutes (>than 50% of time spent in counselling and/or direct pt care on unit) . 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
[2020-05-04] MEDS: aspirin 81 mg EC Tablet PO (13:55)
[2020-05-04] MEDS: pantoprazole DR 40 mg Tablet 20 MG PO (13:55)
[2020-05-04] MEDS: acetaminophen 325 mg Tablet 650 MG PO (13:58)
[2020-05-04] MEDS: dextrose 5%-sod chloride 0.9% 1,000 ML 50 ML IV (14:14)
[2020-05-04] MEDS: cefTRIAXone 1,000 MG in sodium chloride 0.9% (plus) 50 ML 100 MG IV (14:39)
[2020-05-05] VITALS (12 sets, daily range): BP systolic 112–156; BP diastolic 70–91; PULSE 70–80; RESP 16–20; TEMP 36.4–36.9; O2SAT 92–97
[2020-05-05] MEDS: acetaminophen 325 mg Tablet 650 MG PO ×2 (00:44→20:57)
[2020-05-05] MEDS: ipratropium-albuterol 3 mL Neb INHALATION ×4 (03:28→20:30)
[2020-05-05 04:06] LABS: Alanine Aminotransferase 15 U/L (0-41); Albumin Level 2.9 g/dL (3.5-5.2); Alkaline Phosphatase 80 IU/L (40-130); Aspartate Amino Transferase 18 U/L (0-40); Blood Urea Nitrogen 20 mg/dL (8-23); Calcium 7.7 mg/dL (8.5-10.5); Carbon Dioxide 28 mmol/L (22-29); Chloride 107 mmol/L (98-107); Creatinine Clr Calc Pharmacy 68.8242; Glucose 114 mg/dL (65-115); Osmolality Calculated 291 mOsm/kg (285-295); Sodium 142 mmol/L (136-145); Total Bilirubin 0.3 mg/dL (0.15-1.2); Total Protein 4.9 g/dL (6.6-8.7)
[2020-05-05 04:08] LABS: Anion Gap 10.8 (5-19); Potassium 3.8 mmol/L (3.5-5.1)
[2020-05-05 04:17] LABS: Basophils % 0.5 %; Eosinophils # 0.4 10^3/uL (0.0-0.8); Eosinophils % 4.3 %; Hematocrit 47.5 % (42.0-52.0); Hemoglobin 15.1 g/dL (11.7-16.6); Lymphocytes # 1.1 10^3/uL (0.8-4.8); Lymphocytes % 12.7 %; Mean Corpuscular HGB Conc 31.8 g/dL (30.0-36.0); Mean Corpuscular Hemoglobin 29.7 pg (28.0-34.0); Mean Corpuscular Volume 93.3 fL (80-94); Monocytes # 0.5 10^3/uL (0.2-0.9); Monocytes % 5.4 %; Neutrophils # 6.68 10^3/uL (1.8-7.7); Neutrophils % 75.5 %; Nucleated Red Blood Cells % 0 %; Platelet Count 154 10^3/cmm (130-400); Red Blood Count 5.09 10^6/uL (4.1-5.3); Red Cell Distribution Width 12.9 % (12.1-15.1); White Blood Count 8.8 10^3/uL (4.0-10.0)
[2020-05-05] MEDS: budesonide 0.5 mg/2 mL Neb INHALATION ×2 (08:14→20:30)
[2020-05-05] MEDS: metroNIDAZOLE IV 500 MG/100 ML PREMIX 100 MG IV ×2 (09:20→16:18)
[2020-05-05] MEDS: enoxaparin 40 mg/0.4 mL Syringe SUBCUT (09:21)
[2020-05-05] MEDS: pantoprazole DR 40 mg Tablet PO (09:21)
[2020-05-05] MEDS: aspirin 81 mg EC Tablet PO (09:21)
--- NOTE | 2020-05-05 11:29 | PC.SOCIAL ---
IMM Update Pg 2 of IMM updated and copy left at bedside for patient.
--- NOTE | 2020-05-05 12:16 | P.PN_ITS ---
Subjective Subjective: Interval history: Postoperative day #1: Right ureteral stent placement, cystoscopy Clinical picture looks improved. White count today is 8.8. Currently he is afebrile. Denies any significant complaints but he is still significantly diminished cognitively. Not sure whether this is his new baseline or not. Reviewed with Dr. Mirza the general plans for more definitive treatment of the stones (bladder and right ureteral) after he is stabilized from an infectious perspective. It would likely be early or mid next week before we could achieve that level of recovery. He is planning on a PICC line after consulting with the family. No further recommendations at this point other than maintaining the Salgado catheter due to the size of the bladder stones which have the potential to create bladder outlet obstruction. Vitals/I&O/Wt Last Vital Signs Temp 97.5 F L 05/05/20 10:55 Pulse 73 05/05/20 10:55 Resp 18 05/05/20 10:55 BP 112/70 05/05/20 10:55 Pulse Ox 94 05/05/20 10:55 05/04/20 05/05/20 05/05/20 22:59 06:59 14:59 Intake Total 340 / 1680 100 / 1780 240 / 240 Output Total 560 / 560 410 / 970 Balance -220 / 1120 -310 / 810 240 / 240 Physical Exam Const: COMMON NORMALS: no acute distress, alert and well nourished GENERAL APPEARANCE: well kempt and well developed HENMT: COMMON NORMALS: normocephalic and atraumatic HEAD & SCALP: normocephalic and atraumatic Resp: COMMON NORMALS: normal respiratory effort EFFORT & INSPECTION: No labored and No Actively coughing Neuro: SENSORIUM/ORIENTATION: Yes alert Psych: APPEARANCE: Yes grossly normal and Yes well kempt ATTITUDE: Yes calm Urinary Catheter Management^: Salgado: Cath Placed During This Visit: yes, but has since been removed by the nurse Reason for Continuing Indwelling Catheter: Accurate Measurement of Urinary Output in Critically Ill Patients Urinary Catheter Date of Insertion: 05/04/20 Urinary Catheter Time of Insertion: 07: Date Urinary Catheter Removed: 05/04/20 Time Urinary Catheter Discontinued: 07:05 Data : 05/05/20 03:26 05/05/20 03:26 Micro: Microbiology 05/03/20 15:30 MRSA Culture - Final Nose A&P Assessment and plan (1) Obstructive pyelonephritis: Status: Acute (2) Right ureteral calculus: Status: Acute (3) S/P ureteral stent placement: Status: Acute (4) Bladder stone: Status: Acute Attestations Medical Necessity Statement*: So far good response to ureteral stent placement but he is still critically ill. We will continue to require IV antibiotics for an extended period of time. We will plan on the treatment of the ureteral and bladder stones after he has improved clinically from an infectious perspective. 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
[2020-05-05] MEDS: cefTRIAXone 1,000 MG in sodium chloride 0.9% (plus) 50 ML 100 MG IV (14:48)
--- NOTE | 2020-05-05 16:20 | PM.PN ---
Subjective Subjective: Interval history: No events overnight. Postoperative day 1. Denies of any nausea, vomiting, headache. Patient is still diminished cognitively. Hemodynamically has remained stable. Has remained afebrile in last 36 hours. Vitals/I&O/Wt Last Vital Signs Temp 98.5 F 05/05/20 16:00 Pulse 80 05/05/20 16:00 Resp 16 05/05/20 16:00 BP 156/91 05/05/20 16:00 Pulse Ox 96 05/05/20 16:00 05/05/20 05/05/20 05/05/20 06:59 14:59 22:59 Intake Total 100 / 1830 460 / 460 Output Total 410 / 970 Balance -310 / 860 460 / 460 Physical Exam Const: COMMON NORMALS: no acute distress GENERAL APPEARANCE: lethargic (Slightly more alert.) ORIENTATION/CONSCIOUSNESS: Yes lethargic (Slightly more alert.) Resp: COMMON NORMALS: normal respiratory effort and clear to auscultation bilaterally AUSCULTATION: clear to auscultation bilaterally Cardio: COMMON NORMALS: regular rate, regular rhythm and S2 normal heart sound present RATE: regular rate RHYTHM: regular rhythm HEART SOUNDS: S2 normal heart sound present OTHER: No lower extremity edema GI: COMMON NORMALS: Normal to inspection, nondistended, normoactive bowel sounds present, Soft to palpation and non-tender (Appears nontender.) PALPATION: Yes Soft to palpation Neuro: SENSORIUM/ORIENTATION: Yes lethargic (Slightly more alert.) OTHER: Neurological exam is limited. Urinary Catheter Management^: Salgado: Cath Placed During This Visit: yes, but has since been removed by the nurse Reason for Continuing Indwelling Catheter: Accurate Measurement of Urinary Output in Critically Ill Patients Urinary Catheter Date of Insertion: 05/04/20 Urinary Catheter Time of Insertion: 07: Date Urinary Catheter Removed: 05/04/20 Time Urinary Catheter Discontinued: 07:05 Data : 05/05/20 03:26 05/05/20 03:26 A&P Assessment and plan (1) Obstructive pyelonephritis: Status: Acute (2) Bacteremia: Status: Acute (3) Septic shock: Status: Acute (4) Acute cystitis: Status: Acute Qualifiers: Hematuria presence: without hematuria Qualified Code(s): N30.00 - Acute cystitis without hematuria (5) Aspiration pneumonia: Pneumonia/pneumonitis. Status: Acute (6) WILLARD (acute kidney injury): Status: Acute (7) Right ureteral calculus: Status: Acute (8) S/P ureteral stent placement: Status: Acute (9) Muscle function loss: Status: Acute (10) Lymphopenia: Status: Acute (11) Oropharyngeal dysphagia: Status: Acute Additional A&P Information Septic shock: Resolving secondary to Aerococcus obstructive pyelonephritis and aspiration pneumonia. Blood cultures from admission also positive for Aerococcus. Post cystoscopy and stent placement: Postoperative day 1. Case discussed with Dr. Mace. We will continue ceftriaxone and Flagyl. Continue to follow blood cultures. Have requested micro lab for susceptibilities to Aerococcus. I am informed can take up to 1 week. Patient will most likely require ceftriaxone for at least 10 more days to finish a two-week course since first negative culture. Patient requires PICC line for further treatment as an outpatient. Patient sister Ms. Little who is the DPOAE has been refusing for the same for now. Will discuss with her further. Keep mean arterial pressures over 65 mmHg. Physical therapy with chest vest. DuoNeb's and budesonide twice daily. Oxygen supplementation keeping saturation over 90% MRSA positive. Sputum culture still awaited. Being followed with speech and swallow therapy as well. Will advance diet accordingly. For now continue with soft mechanical diet with thin liquids. Septic encephalopathy: Improving. Seems at baseline now. Acute kidney injury: Baseline creat normal. Creatinine normalized now.. Stop IV fluids. Continue with oral diet. Medically consistent done for nephrotoxic drugs. Hypertension: Blood pressure is better now. Will reintroduce home medication of Coreg. Continue to monitor blood pressures. Target blood pressure less than 140/90 mmHg. COPD: Patient uses 2 L at home at baseline. Continue oxygen supplementation keeping saturation over 90%. CAD: No chest pain at present. EKG stable. Continue home dose of aspirin. Severe protein energy malnutrition. Severe muscle wasting. DNR/DNI DVT prophylaxis: Lovenox Mechanical soft diet as per the speech and swallow evaluation. Dispo: When stable patient will return back to [facility] care. Most likely patient can be discharged tomorrow if continues to remain stable. Attestations Medical Necessity Statement*: Severe sepsis, obstructive uropathy, pyelonephritis, aspiration pneumonia Time Spent in Patient Care: Greater than 35 minutes (>than 50% of time spent in counselling and/or direct pt care on unit). 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
[2020-05-05] MEDS: lanolin oint 7 gm 1 APPLIC TOPICAL (21:46)
[2020-05-06] VITALS (11 sets, daily range): BP systolic 131–157; BP diastolic 74–91; PULSE 64–86; RESP 16–19; TEMP 36.5–36.9; O2SAT 94–99
[2020-05-06] MEDS: metroNIDAZOLE IV 500 MG/100 ML PREMIX 100 MG IV ×3 (00:04→15:18)
[2020-05-06] MEDS: ipratropium-albuterol 3 mL Neb INHALATION ×3 (03:22→15:16)
[2020-05-06] MEDS: acetaminophen 325 mg Tablet 650 MG PO ×2 (04:52→15:18)
--- NOTE | 2020-05-06 05:59 | PC.NURSE ---
SHIFT SUMMARY Had a good night. Confused but cooperative. Has taken O2 and telemetry off few times and was replaced. Moans and gabriele out at times. Family says he does this alot. Medicated X2 with po Tylenol and this with repositioning seems to help him rest better and he rests after. Likes to drink Pepsi. Talked with pts DPOA on the phone last night when she called for an update and she says family still against pt getting a PICC line placed. Going to have further discussion with Dr sultana
[2020-05-06] MEDS: budesonide 0.5 mg/2 mL Neb INHALATION (07:34)
[2020-05-06] MEDS: pantoprazole DR 40 mg Tablet PO (09:39)
[2020-05-06] MEDS: enoxaparin 40 mg/0.4 mL Syringe SUBCUT (09:39)
[2020-05-06] MEDS: carvedilol 3.125 mg Tablet PO (09:39)
[2020-05-06] MEDS: aspirin 81 mg EC Tablet PO (09:39)
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
[2020-05-06] MEDS: cefTRIAXone 1,000 MG in sodium chloride 0.9% (plus) 50 ML 100 MG IV (15:17)
[2020-05-06] MEDS: docusate sodium 100 mg Capsule PO (15:18)
== END 2020-05-06 16:00 | disposition skilled nursing facility (03) | DRG 853 ==
LOC: ER 22:10 → ICU 22:13 → MEDSURG 05-02 15:32
PROVIDERS: Internal Medicine; Urology; Admitting Provider Internal Medicine; Emergency Provider Emergency Medicine; PCP Internal Medicine; Visit Provider Student in an Organized Health Care Education/Training Program
PROC: 0TJB8ZZ Inspection of Bladder, Via Natural or Artificial Opening Endoscopic (ICD-10-PCS; CPT 52000; principal; 2020-05-04 07:00)
PROC: 0TJ98ZZ Inspection of Ureter, Via Natural or Artificial Opening Endoscopic (ICD-10-PCS; CPT 52351; 2020-05-04 07:00)
PROC: 0T768DZ Dilation of Right Ureter with Intraluminal Device, Via Natural or Artificial Opening Endoscopic (ICD-10-PCS; CPT 50605; 2020-05-04 07:00)
DX: A41.9 Sepsis, unspecified organism (principal); R65.21 Severe sepsis with septic shock; G93.41 Metabolic encephalopathy; J69.0 Pneumonitis due to inhalation of food and vomit; N17.9 Acute kidney failure, unspecified; N30.00 Acute cystitis without hematuria; N11.1 Chronic obstructive pyelonephritis; R13.12 Dysphagia, oropharyngeal phase; Z74.01 Bed confinement status; Z66 Do not resuscitate; Z79.82 Long term (current) use of aspirin; J44.9 Chronic obstructive pulmonary disease, unspecified; N40.0 Benign prostatic hyperplasia without lower urinary tract symptoms; I25.10 Atherosclerotic heart disease of native coronary artery without angina pectoris; Z99.81 Dependence on supplemental oxygen; I73.9 Peripheral vascular disease, unspecified; Z79.01 Long term (current) use of anticoagulants; Z95.820 Peripheral vascular angioplasty status with implants and grafts; Z87.891 Personal history of nicotine dependence
CPT/HCPCS: 12345; 36415; 51702; 71045; 74176; 76000; 80048; 80053; 80202; 81001; 81003; 82550; 83605; 83735; 83880; 84100; 84145; 84484; 85025; 85610; 87040; 87077; 87086; 87184; 87205; 87493; 87641; 92507; 92526; 92610; 93005; 94640; 94669; 96372; 96375; 99283; C2625; J0696; J0744; J1650; J1940; J2370; J2704; J3105; J3370; J3480; J3490; J7030; J7040; J7050; J7626; J7799; P9047; S0030

== ENCOUNTER → 2020-06-16 10:15 | Outpatient (BNVA) | payer MEDICARE, MEDICAID, SELFPAY | PROVIDERS: PCP Internal Medicine; Visit Provider Internal Medicine | DX: Z11.59 Encounter for screening for other viral diseases (principal) | CPT/HCPCS: 87635 ==

== ENCOUNTER 2020-06-21 11:52 | Day surgery (SDC) | payer MEDICARE, MEDICAID, SELFPAY ==
[2020-06-18 14:15] VITALS: BMI 19.0
[2020-06-21] VITALS (13 sets, daily range): BP systolic 144–170; BP diastolic 77–105; PULSE 75–84; RESP 14–18; TEMP 36.6–36.8; O2SAT 93–100
--- NOTE | 2020-06-21 | SCC_ITS ---
Procedure Done: 1. Cystolitholapaxy 2. Removal of right ureteral stent 3. Right ureteroscopy laser lithotripsy, stent placement 21.2 seconds of fluoroscopic guidance, for a cumulative dose of 3.5 mGy, was provided to Dr. Mace by the radiology department. C-arm images of the abdomen were saved for the patient's permanent record. [facility]
--- NOTE | 2020-06-21 12:08 | SC_ITS ---
WS: [id number] INTRAOPERATIVE TECHNIQUE: 6 Spot fluoroscopic images for intraoperative purposes. FLUOROSCOPY TIME: 21.2 seconds CLINICAL INFORMATION: Right ureteroscopy COMPARISON: None. FINDINGS: Intraoperative deployment of right double-J ureteral stent. Cholecystectomy clips. SC/C-arm FL for Urology IMPRESSION: Images obtained for intraoperative purposes.
[2020-06-21] MEDS: sodium chloride 0.9% 1,000 ML 30 ML IV (13:00)
--- NOTE | 2020-06-21 13:09 | ECG_ITS ---
[facility] Test Date: 2020-06-21 Pat Name: Geoffrey Villa Department: Room: Gender: Male Instructional Coordinator: : 1940 Requested By: Jayy Mace Order Number: [id number] Stout MD: Kashif Faria M.D. Measurements Intervals [place] Rate: 76 P: 78 CO: 167 QRS: 54 QRSD: 78 T: 79 QT: 382 QTc: 431 Interpretive Statements SINUS RHYTHM MODERATE ST DEPRESSION [0.05+ mV ST DEPRESSION] Compared to ECG 04/28/2020 19:39:43 Atrial fibrillation no longer present ST (T wave) deviation still present Electronically Signed On 06-21-2020 19:35:58 CDT by Kashif Faria M.D. [id number]
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
--- NOTE | 2020-06-21 17:30 | P.HPUD_ITS ---
Surgery/Procedure H&P Update DATE OF PROCEDURE: June 21, 2020 DATE H&P PERFORMED: 06/14/20 H&P UPDATE INFORMATION: I have reviewed H&P completed within last 30 days, I have examined patient prior to procedure, No changes to prior documentation and H&P is in [facility] EMR on date indicated CHANGES TO PREVIOUS DOCUMENTATION: His sister who keeps a close eye on him states that he is pretty much at baseline. He is lethargic at times and really has not bounced back from his previous infection. Reviewed again with her the big picture and she is pretty comfortable with the idea of proceeding on with trying to get the stent out and stone out to improve his quality of life even though his comorbidities are very severe and risks of surgery are significant. She does understand that quite well and has comfortably discussed those issues and is content with the decision PREOP DIAGNOSIS: Bladder and right ureteral calculi PLANNED PROCEDURE: Operation Date: 06/21/20 15:05 Proposed Procedures p Cystolitholapaxy 69783 N11.1 N20.1 N21.0(Not Applicable) - Jayy Mace MD s Right Ureteroscopy(Right) - Jayy Mace MD s Laser Lithotripsy(Not Applicable) - Jayy Mace MD s Ureteral Stent Placement(Not Applicable) - Jayy Maec MD
--- NOTE | 2020-06-21 17:34 | P.OP_ITS ---
Operative Report Date of procedure: June 21, 2020 Pre-op Diagnosis: Bladder and right ureteral calculi Post-op diagnosis: same Procedure Done: 1. Cystolitholapaxy 2. Removal of right ureteral stent 3. Right ureteroscopy laser lithotripsy, stent placement Implants: Right ureteral stent Pathology: Bladder and ureteral calculi fragments Surgeon: Nakita Anesthesia: General Estimated blood loss: Minimal Urine output: Not measured Complications: None Findings: 1. Multiple small prostatic bladder stones flushed free from the bladder 2. 3 cm bladder stone fragmented with laser lithotripsy for cystolitholapaxy 3. Right ureteral stone measuring approximately 2 cm fragmented with laser lithotripsy and all fragments removed. 4. 6 Bhutanese by 30 cm double-pigtail right ureteral stent left indwelling Condition: stable Disposition: PACU Brief History: Geoffrey is a very unhealthy debilitated 80-year-old white male who was recently hospitalized with obstructive pyelonephritis and underwent emergency stenting with antibiotic therapy. He has a chronic indwelling Salgado catheter and at time of placement of the stent he was also found to have multiple bladder stones that were identified on CT scan. His overall health is very poor and his family had strongly considered the possibility of just palliative care but ultimately chose to proceed with attempt at definitive therapy of the stone and bladder stones. He is back now for that procedure. His prognosis is not very good even if the procedure goes very well but it is hoped based on family wishes that this will improve his quality of life for the time that he has remaining. Procedure: After routine preoperative evaluation examination and obtaining of informed consent he was taken to the operating suite on 06/21/2020 where general anesthesia was administered without difficulty after appropriate timeout was performed, SCDs confirmed to be functioning, preoperative antibiotics administered, beta-karl protocol confirmed. Prepped and draped in the usual sterile fashion in dorsolithotomy position pain careful attention to avoiding pressure points. 21 Bhutanese cystoscope with 30 degree lens was introduced into the urethra meatus and advanced into the bladder under videoscopy. Bladder was systematically examined and multiple bladder stones were identified. The largest was about 3 cm in size and treated with laser lithotripsy with 510 ?m holmium laser fiber and fragments removed with an Ellik evacuator. There were multiple smaller stones that were flushed free from the bladder through the scope. The bladder wall showed a few mucosal minor tears related to distention and these were mildly oozing and for that reason fulgurated with Bugbee cautery probe to complete hemostasis. They remained hemostatic throughout the remainder of the procedure. A flexible tip guidewire was then advanced along the right ureteral stent bypassing the stone and curling in the area of the renal pelvis. The stent was secured with grasping forceps and withdrawn without difficulty with easy uncurling of the proximal aspect. The wire was secured to the drapes as a safety wire. A 7.5 Bhutanese offset semirigid ureteroscope was advanced up the right ureter next to the guidewire. The stone was encountered in the expected position. No other gross abnormalities were identified. The stone was fragmented with a 510 ?m homing laser fiber into smaller pieces that were flushed through the sheath and removed with combination grasping and basket forceps. Final inspection of the ureter showed no residual stones. There was a lot of inflammation where the stone had been located and for that reason it was decided to leave a stent indwelling. A 30 cm x 6 Bhutanese stent was passed over the guidewire through the cystoscope into appropriate position as confirmed via fluoroscopy and cystoscopy. An 18 Bhutanese coud? tip Salgado catheter was placed over guidewire (there was a posterior lip with difficult maneuvering of the catheter) with proven good function. 10 cc placed in the balloon. Urine was clear. He tolerated procedure well without complications and was awakened in the operating room and returned to the recovery room in stable condition. PLANS: 1. Observe overnight 2. Hospitalist consult if significant medical deterioration 3. Expect return to [facility] facility tomorrow.
[2020-06-21] MEDS: levofloxacin-dextrose 5 % 500 MG/100 ML PREMIX 100 MG IV (18:10)
--- NOTE | 2020-06-21 20:05 | PM.PACU ---
PACU note PACU note: patient VSS, good respiratory effort, report to RN Post-Anesthesia Exam: somnolent, arousable Disposition: admitted and other (To floor)
[2020-06-21] MEDS: acetaminophen 325 mg Tablet PO (21:41)
[2020-06-22] VITALS (7 sets, daily range): BP systolic 119–162; BP diastolic 69–80; PULSE 65–77; RESP 12–18; TEMP 36.6–37.1; O2SAT 90–95
--- NOTE | 2020-06-22 01:18 | PC.NURSE ---
[facility] called at 0118 on 06/22/2020, was curious about why patient was not back at facility that they was under the impression patient was having a out patient procedure and would be back today(06/21/2020), per notes on patient chart from Dr. Mace patient should D/c back to [facility] today and would keep for overnight observation.
[2020-06-22] MEDS: morphine 4 mg/mL SDV 1 mL 1 MG IVP (01:54)
[2020-06-22] MEDS: ALPRAZolam 0.25 mg Tablet PO (04:35)
[2020-06-22] MEDS: sodium chloride 0.9% 1,000 ML 30 ML IV (04:52)
--- NOTE | 2020-06-22 07:51 | P.DS_ITS ---
Discharge Providers Date of Discharge: June 22, 2020 Attending Provider at Discharge: Jayy Mace MD Primary Care Provider: Mathieu Overton DO Diagnoses at Discharge Discharge Diagnosis (1) Bladder stone: Status: Acute (2) Right ureteral calculus: Status: Acute Reason for Visit Reason for Visit: cystolitholapaxy, right ureteroscopy laser stent Hospital Course Discharge Summary: Admitted on the day of the procedure which went well. Large bladder stone and right ureteral stone were fragmented with laser lithotripsy and all fragments removed. Due to antonella-stone ureteral edema a ureteral stent was replaced. Plan will be to remove at my office next week. Due to chronic urinary retention the Salgado catheter was replaced postoperatively. He has a posterior prostatic lip which makes it somewhat difficult to place the catheter. On postoperative day #1 he was deemed a reasonable candidate for further convalescence back at his custodial facility. Overall his health is very poor with poor prognosis. Physical Exam Const: COMMON NORMALS: no acute distress, alert and well nourished GENERAL APPEARANCE: well kempt and well developed HENMT: COMMON NORMALS: normocephalic and atraumatic HEAD & SCALP: normocephalic and atraumatic Resp: COMMON NORMALS: normal respiratory effort EFFORT & INSPECTION: No labored and No Actively coughing Neuro: SENSORIUM/ORIENTATION: Yes alert Psych: APPEARANCE: Yes well kempt Urinary Catheter Management^: Salgado: Cath Placed During This Visit: yes, but has since been removed by the nurse Urinary Catheter Date of Insertion: 06/21/20 Urinary Catheter Time of Insertion: 19:29 Date Urinary Catheter Removed: 06/21/20 Time Urinary Catheter Discontinued: 18:30 Discharge Data Data Completed and Pending: Pending at discharge Category Date Time Status C-arm FL for Urol ogy Routine Exams 06/21/20 12:08 Taken Basic Metabolic P amos AM LABS Lab 06/22/20 04:00 Ordered Complete Blood Co unt w/Auto AM LABS Lab 06/22/20 04:00 Ordered Stone Analysis Ro utine Lab 06/21/20 18:53 Ordered Pathology: Surgic al [PTH] Routine Pth 06/21/20 19:51 Ordered Vitals: Last Vital Signs Temp 98.7 F 06/22/20 05:20 Pulse 76 06/22/20 05:20 Resp 18 06/22/20 05:20 BP 119/77 06/22/20 05:20 Pulse Ox 93 06/22/20 05:20 Discharge Plan Discharge Patient Disposition: SNF w Plan Readm Condition: Stable Prescriptions: New levofloxacin 500 mg tablet 500 mg PO DAILY 7 Days Qty: 7 RF: 0 Continued acetaminophen 325 mg Tablet 325 mg PO TID RF: 0 acetaminophen [Tylenol] 325 mg Tablet 325 mg PO QID PRN (Reason: Pain) RF: 0 thiamine HCl (vitamin B1) 100 mg Tablet 100 mg PO DAILY RF: 0 aspirin [Aspir-81] 81 mg Tablet,Delayed Release (Dr/Ec) 81 mg PO DAILY RF: 0 carvedilol 3.125 mg tablet 3.125 mg PO DAILY RF: 0 pantoprazole 20 mg Tablet,Delayed Release (Dr/Ec) 20 mg PO DAILY RF: 0 alprazolam 0.25 mg tablet 0.25 mg PO PRN PRN (Reason: Anxiety) RF: 0 magnesium hydroxide [Milk of Magnesia] 400 mg/5 mL Suspension 400 mg PO DAILY PRN (Reason: Constipation) RF: 0 bisacodyl 10 mg Suppository 10 mg WA DAILY PRN (Reason: Constipation) RF: 0 Enema Disposable 19-7 gram/118 mL Enema 118 ml WA DAILY PRN (Reason: Constipation) RF: 0 docusate sodium [Colace] 100 mg Capsule 100 mg PO BID PRN (Reason: Constipation) RF: 0 polyethylene glycol 3350 17 gram/dose Powder 17 g PO DAILY PRN (Reason: Constipation) RF: 0 bisacodyl 5 mg Tablet 10 mg PO DAILY PRN (Reason: Constipation) RF: 0 TwoCal HN 0.08-2 gram-kcal/mL Liquid See Rx Instructions .ROUTE .COMPLEX RF: 0 Discharge Orders: Discharge Order (Routine); Ordered 06/22/20 Ordered By: Jayy Mace Referrals: Mathieu Overton DO [Primary Care Provider] - Discharge Diet: Usual diet Discharge Activity: Resume usual activity Activity Restrictions/Additional Instructions: 1. Right ureteral stone and bladder stones were treated and removed. 2. Salgado catheter was replaced. 3. We will plan on KUB and follow-up in my office early next week for possible cystoscopy and right ureteral stent removal. 4. Continue previous care at half-way. No changes in baseline activity medications diet etc. 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
[2020-06-22] MEDS: aspirin 81 mg EC Tablet PO (08:33)
[2020-06-22] MEDS: pantoprazole DR 40 mg Tablet 20 MG PO (08:33)
[2020-06-22] MEDS: carvedilol 3.125 mg Tablet PO (08:34)
[2020-06-22] MEDS: acetaminophen 325 mg Tablet PO ×2 (08:34→15:49)
[2020-06-22] MEDS: thiamine 100 mg Tablet PO (08:34)
--- NOTE | 2020-06-22 10:06 | ANE.PACU2 ---
Inpatient post-anesthesia follow up: Airway intact: Yes Vital signs: Temperature 98.7 F Pulse Rate 76 Respiratory Rate 18 Blood Pressure 119/77 Pulse Oximetry 93 Oxygen Delivery Me thod Nasal Cannula Oxygen Flow Rate 2 Fraction of Inspir ed Oxygen Hydration adequate: Yes Nausea and vomiting: No Pain level: 1 Mental status: Baseline Additional Comments: patient's mentation still very sedated
[2020-06-22 10:13] LABS: Basophils % 0.4 %; Eosinophils # 0.2 10^3/uL (0.0-0.8); Eosinophils % 2.3 %; Hematocrit 37.3 % (42.0-52.0); Hemoglobin 11.6 g/dL (11.7-16.6); Lymphocytes # 1.3 10^3/uL (0.8-4.8); Lymphocytes % 16.6 %; Mean Corpuscular HGB Conc 31.1 g/dL (30.0-36.0); Mean Corpuscular Hemoglobin 29.2 pg (28.0-34.0); Mean Platelet Volume 9.5 fL (7.4-10.4); Monocytes # 0.6 10^3/uL (0.2-0.9); Neutrophils # 5.45 10^3/uL (1.8-7.7); Neutrophils % 72.4 %; Nucleated Red Blood Cells % 0 %; Platelet Count 206 10^3/cmm (130-400); Red Blood Count 3.97 10^6/uL (4.1-5.3); Red Cell Distribution Width 13.2 % (12.1-15.1); White Blood Count 7.5 10^3/uL (4.0-10.0)
[2020-06-22 10:39] LABS: Blood Urea Nitrogen 23 mg/dL (8-23); Calcium 7.9 mg/dL (8.5-10.5); Carbon Dioxide 28 mmol/L (22-29); Chloride 106 mmol/L (98-107); Glucose 95 mg/dL (65-115); Osmolality Calculated 297 mOsm/kg (285-295); Sodium 142 mmol/L (136-145)
--- NOTE | 2020-06-22 10:58 | PC.NURSE ---
Returned Daisy's sister (Rosio) call.
--- NOTE | 2020-06-22 12:16 | PC.NURSE ---
called [facility] to give pt report - no answer.
--- NOTE | 2020-06-22 12:51 | PC.NURSE ---
called [facility] to give a report on pt. - no answer after being transferred.
--- NOTE | 2020-06-23 00:04 | PC.NURSE ---
Pt transported to SNF at 1999 with belongings, teeth in place and in his wheelchair and fully dressed.
== END 2020-06-22 20:00 ==
LOC: OR 11:58 → MEDSURG 19:27
PROVIDERS: PCP Internal Medicine; Visit Provider Urology
PROC: 0TCB8ZZ Extirpation of Matter from Bladder, Via Natural or Artificial Opening Endoscopic (ICD-10-PCS; CPT 52318; principal; 2020-06-21 15:05)
PROC: 0TJ98ZZ Inspection of Ureter, Via Natural or Artificial Opening Endoscopic (ICD-10-PCS; CPT 52351; 2020-06-21 15:05)
PROC: (CPT 52318; 2020-06-21 15:05)
PROC: (CPT 50605; 2020-06-21 15:05)
PROC: (CPT 52310; 2020-06-21 15:05)
DX: N20.1 Calculus of ureter (principal); N21.0 Calculus in bladder; J44.9 Chronic obstructive pulmonary disease, unspecified; I25.10 Atherosclerotic heart disease of native coronary artery without angina pectoris; Z95.5 Presence of coronary angioplasty implant and graft; Z86.73 Personal history of transient ischemic attack (TIA), and cerebral infarction without residual deficits; F03.90 Unspecified dementia, unspecified severity, without behavioral disturbance, psychotic disturbance, mood disturbance, and anxiety; N40.0 Benign prostatic hyperplasia without lower urinary tract symptoms; Z99.81 Dependence on supplemental oxygen; Z87.891 Personal history of nicotine dependence
CPT/HCPCS: 52318; 52356; 12345; 36415; 76000; 80048; 82365; 85025; 88300; 93005; 96375; C2625; J0330; J1956; J2270; J2370; J2405; J2704; J2710; J3010; J3490; J7030

== ENCOUNTER 2020-07-05 08:40 | Outpatient (CLI) | payer MEDICARE, MEDICAID, SELFPAY ==
--- NOTE | 2020-07-05 08:55 | XR_ITS ---
WS: [id number] XR abdomen 1V* [id number] REASON FOR EXAM: Right ureteral stone FINDINGS: Double pigtail ureteral stent is in position and appropriate configuration. Surgical clips overlie th e right kidney. Only a small calculus overlying the lower pole is identified at this time. No calculi along the right ureteral course identified. No calculi identified within the bladder. XR/XR abdomen 1V* [id number] IMPRESSION: Only a small right renal calculus is identified at this time. No evidence of th e previously demonstrated right ureteral calculus.
== END 2020-07-05 08:41 | disposition home or self-care (01) ==
LOC: RAD 08:49
PROVIDERS: PCP Internal Medicine; Visit Provider Urology
DX: N20.1 Calculus of ureter (principal); N20.0 Calculus of kidney
CPT/HCPCS: 74018